=== PATIENT | male | born 2000 | race African-American/Black ===

== ENCOUNTER 2023-04-06 20:35 | Inpatient (IN) | payer OTHER ==
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
--- NOTE | 2023-04-06 22:19 | RAD REPORT ---
EXAM DESCRIPTION: RAD - Shoulder Right 2 View - 04/06/2023 10:12 pm CLINICAL HISTORY: PAIN COMPARISON: <Comparisons> FINDINGS: No acute fracture or dislocation is evident. There is evidence of a small right-sided pneu mothorax. Subcutaneous emphysema is also present right chest wall.
--- NOTE | 2023-04-06 22:19 | RAD REPORT ---
EXAM DESCRIPTION: RAD - Hand Left 3 View - 04/06/2023 10:13 pm CLINICAL HISTORY: PAIN COMPARISON: <Comparisons> FINDINGS: No fracture or dislocation seen.
[2023-04-06] MEDS ORDERED: NA CHLORIDE 0.9% 1,000 ML ONE (22:28)
[2023-04-06] MEDS ORDERED: ONDANSETRON 4 MG/2 ML VIAL ONE ×2 (22:28→23:37)
[2023-04-06] MEDS ORDERED: FENTANYL CITR 100 MCG/2 ML ONE (22:28)
[2023-04-06] MEDS ORDERED: MORPHINE 4 MG/ML SYR ONE (23:37)
[2023-04-06] MEDS ORDERED: ETOMIDATE 20 MG/10 ML VIAL IV ONE (23:37)
[2023-04-06] MEDS ORDERED: RSI MEDICATION KIT IV ONE (23:45)
[2023-04-06] MEDS ORDERED: MIDAZOLAM HCL 5 ML ONE ×2 (23:51→23:58)
[2023-04-06] MEDS ORDERED: KETAMINE HCL IN 0.9 % NACL 50 MG/5 ML SYRINGE IV ONE (23:52)
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
[2023-04-07] MEDS ORDERED: ONDANSETRON 4 MG/2 ML VIAL IV PRN ×2 (01:30→05:18)
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
[2023-04-07 02:00] LABS: Absolute Lymphocytes (CBC) 1.3 K/uL (0.7-4.9); Hematocrit 41.6 % (39.6-49.0); MCV 83.5 fL (80-100); MPV 7.7 fL (7.6-11.3); Platelets 249 thou/uL (152-406); RBC Red Blood Cell Count 4.98 M/uL (4.33-5.43)
[2023-04-07 02:13] LABS: Albumin 4.1 g/dL (3.4-5.0); Bilirubin Total 1.3 mg/dL (0.2-1.0); Protein, Total 7.3 g/dL (6.4-8.2)
[2023-04-07 04:18] VITALS: BMI 21.9
[2023-04-07] MEDS: NA CHLORIDE 0.9% 1,000 ML IV SCH ×2 (05:21→16:09)
[2023-04-07] MEDS ORDERED: TETANUS & DIPHTHERIA TOX,ADULT 0.5 ML VIAL IMVAC ONE ×2 (07:38→10:00)
--- NOTE | 2023-04-07 07:43 | RAD REPORT ---
EXAM DESCRIPTION: Alfredo Single View04/07/2023 7:33 am CLINICAL HISTORY: Pneumothorax COMPARISON: April 07, 2023 FINDINGS: Tip of a right chest tube upper right hemithorax No significant pneumothorax visualized Lungs appear clear of acute infiltrate. Heart is normal size IMPRESSION: No significant right pneumothorax
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
[2023-04-07] MEDS: CEFAZOLIN 1 GM in NA CHLORIDE 0.9% 50 ML IVPB SCH ×2 (09:26→16:09)
[2023-04-07] MEDS ORDERED: TDAP (DIPHTH,PERTUSS(ACELL),TET VAC) 0.5 ML VIAL IMVAC ONE ×2 (09:50→10:00)
[2023-04-07] MEDS: MORPHINE 2 MG/ML SYR IV PRN ×2 (10:59→19:04)
[2023-04-07] MEDS ORDERED: ETOMIDATE 20 MG/10 ML VIAL IV ONE (14:48)
[2023-04-08] MEDS: MORPHINE 2 MG/ML SYR IV PRN ×3 (03:53→07:52)
[2023-04-08] MEDS: NA CHLORIDE 0.9% 1,000 ML IV SCH ×2 (03:53→14:52)
[2023-04-08] MEDS ORDERED: MORPHINE 2 MG/ML SYR ONE (03:57)
[2023-04-08] MEDS ORDERED: NA CHLORIDE 0.9% 1,000 ML ONE (03:57)
[2023-04-08 07:12] LABS: Phosphorus 2.7 mg/dL (2.5-4.9)
[2023-04-08] MEDS: CEFAZOLIN 1 GM in NA CHLORIDE 0.9% 50 ML IVPB SCH ×3 (07:52)
[2023-04-08 08:00] VITALS: TEMP 98.7
--- NOTE | 2023-04-08 08:38 | RAD REPORT ---
EXAM DESCRIPTION: Alfredo Single View04/08/2023 5:45 am CLINICAL HISTORY: Chest tube insertion COMPARISON: April 07, 2020. FINDINGS: Right chest tube with its tip upper right hemithorax. No pneumothorax seen. The lungs appear clear of acute infiltrate. The heart is normal size
[2023-04-08] MEDS ORDERED: MORPHINE 2 MG/ML SYR IV ONE (08:53)
[2023-04-08 09:14] VITALS: O2SAT 98
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
[2023-04-08 12:02] VITALS: BP 114/63
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
--- NOTE | 2023-04-08 15:49 | RAD REPORT ---
EXAM DESCRIPTION: RADChest Single View04/08/2023 3:12 pm CLINICAL HISTORY: Chest tube removal IMPRESSION: Right chest tube is been removed. A pneumothorax is not seen
--- NOTE | 2023-04-08 17:34 | RAD REPORT ---
EXAM DESCRIPTION: RAD - Chest Single View - 04/07/2023 12:48 am CLINICAL HISTORY: 22 years Male, Chest tube placement COMPARISON: None IMPRESSION: Placement of right apical chest tube. No focal consolidation. No pleural effusion. No pneumothorax. Cardiomediastinal silhouette is within normal limits. No acute osseous abnormality. Electronically signed by: Rodrigo Salazar DO 04/07/2023 12:55 AM FINANCE ASSOCIATE Due to temporary technical issues with the PACS/Fluency reporting system, reports are being signed by the in house radiologists without review as a courtesy to insure prompt reporting. The interpreting radiologist is fully responsible for the content of the report.
--- NOTE | 2023-04-11 16:59 | EKG ---
Test Date: 2023-04-06 Test Time: 22:55:10 Dust Puller: MARVIN MEASUREMENT RESULTS: Intervals: Rate: 72 WY: 114 QRSD: 76 QT: 378 QTc: 413 [place]: P: 90 WY: 114 QRS: 79 T: 82 INTERPRETIVE STATEMENTS: Normal sinus rhythm Normal ECG No previous ECG available for comparison Electronically Signed On 04-11-23 16:53:48 RADIOGRAPHER by Dieter Sweet
== END 2023-04-08 17:00 | disposition home or self-care (01) | DRG 988 ==
LOC: ER 20:35 → 3RD-ICU 04-07 01:25
PROVIDERS: ADMIT Internal Medicine; ATTEND Internal Medicine Nephrology
PROC: 0CX Mouth and Throat, Transfer (ICD-10-PCS; principal; 2023-04-07)
PROC: 0JQ10ZZ Repair Face Subcutaneous Tissue and Fascia, Open Approach (ICD-10-PCS; 2023-04-07)
PROC: 0W9930Z Drainage of Right Pleural Cavity with Drainage Device, Percutaneous Approach (ICD-10-PCS; 2023-04-07)
DX: J93.9 Pneumothorax, unspecified (principal); T79.7XXA Traumatic subcutaneous emphysema, initial encounter; S01.511A Laceration without foreign body of lip, initial encounter; Z23 Encounter for immunization; Z88.1 Allergy status to other antibiotic agents; X99.9XXA Assault by unspecified sharp object, initial encounter; Y93.9 Activity, unspecified; Y99.9 Unspecified external cause status; Y92.149 Unspecified place in prison as the place of occurrence of the external cause
CPT/HCPCS: 36415; 51702; 70450; 71045; 71260; 72125; 74177; 80053; 82947; 83735; 84100; 85025; 93005; 96374; 96375; 99291; J0690; J2250; J2270; J2405; J3010; J7030; Q9967